=== PATIENT | male | born 1945 | race African-American/Black ===

== ENCOUNTER 2021-03-02 19:09 | Emergency (ER) | payer OTHER, SELFPAY ==
[2021-03-02 19:22] VITALS: BP 126/82; PULSE 87; RESP 20; TEMP 36.6; O2SAT 100; BMI 25.6
--- NOTE | 2021-03-02 21:50 | ED.GENADULT ---
HPI - General Adult General Chief complaint: Back Pain/Injury Stated complaint: leg pain Time Seen by Provider: 03/02/21 21:36 Source: patient and EMS Mode of arrival: EMS Limitations: no limitations History of Present Illness HPI narrative: Patient comes via EMS from [facility] since short-term rehab. Per EMS, patient was discharged from [facility] approximately 90 minutes ago, patient seems to have chronic back pain and goes to [facility] frequently. When patient was discharged from [facility], patient was taken back to the short-term rehab. Once he arrived, per EMS report, patient started complaining of his usual leg pain. Patient rested to be brought back to the hospital, this time [facility]. On arrival here, patient states that he was forced to come here, he did not want to come to the hospital, states that the short-term rehab forced him to come here because he was being loud. Patient states that he did not request to be brought back to the hospital. Patient states that he would like to be discharged home, he has no interest in short-term rehab. Patient states that he does not want any workup, all his pain is chronic, and did not want to come to hospital anyways. Related Data Allergies Allergy/AdvReac Type Severity Reaction Status Date / Time No Known Allergies Allergy Unverified 12/18/19 19:16 [No Known Allergies*] grass and pollen Allergy Unknown Uncoded 03/05/17 00:00 seasonal Allergy Unknown Uncoded 03/05/17 00:00 Review of Systems Review of Systems: Constitutional : No Weight loss, No Fever, No Chills, No Night Sweats, No Fatigue, No Malaise ENT/Mouth : No Hearing loss, No Ear Pain, No Nasal Congestion, No Sinus Pain, No Hoarseness, No sore throat, No Rhinorrhea, No Swallowing Difficulty Eyes: No Eye Pain, No Swelling, No Redness, No Foreign Body, No Discharge, No Vision Changes Cardiovascular : No Chest Pain, No SOB, No Dyspnea on Exertion, No Orthopnea, No Edema, No Palpitations Respiratory : No Cough, No Sputum, No Wheezing, No Smoke Exposure, No Dyspnea Gastrointestinal : No Nausea, No Vomiting, No Diarrhea, No Constipation, No abdominal Pain, No Hematochezia, No Melena Genitourinary : no irregular bleeding, No Dysuria, No Urinary Frequency, No Hematuria, No Urinary Incontinence, No Urgency, No Flank Pain, No Urinary Flow Changes, No Hesitancy Musculoskeletal : Chronic back pain and lower extremity pain, No Myalgias, No Joint Swelling Skin : No Skin Lesions, No rash Neuro : No Weakness, No Numbness, No Paresthesias, No Loss of Consciousness, No Dizziness, No Headache Psych : No Anxiety/Panic, No Depression, No SI/HI/AH/VH, No Social Issues, Heme/Lymph: No Bruising, No Bleeding,No Lymphadenopathy Endocrine : No Polyuria, No Polydipsia, No Temperature Intolerance [facility] Social History Social History Advance Directives: No Advance Directives Information Provided: Yes Physical Exam Vital Signs: Vital Signs: Last Vital Signs Temp 98 F 03/02/21 19:22 Pulse 87 03/02/21 19:22 Resp 20 03/02/21 19:22 BP 126/82 03/02/21 19:22 Pulse Ox 100 03/02/21 19:22 BMI result Body Mass Index 25.6 Const: Other: Appearance: Alert. Oriented X3. No acute distress. Calm, cooperative Eyes: Pupils equal, round and reactive to light. ENT: Pharynx normal. Neck: Normal inspection. Neck supple. No lymph nodes noted. No crepitus CVS: Normal heart rate and rhythm. Pulses normal. Normal S1 and S2 Respiratory: No respiratory distress. Breath sounds normal. No Wheezing. No rales Abdomen: Soft and nontender. No rigidity. No distention. good BS x4 Skin: Skin warm and dry. Normal skin color. Normal skin turgor. Extremities: No lower extremity edema. Neuro: Oriented X 3. No motor deficit. No sensory deficit. Moving all extermities. No slurred speech. Course Course Course Narrative: Patient declined any workup. Patient states that he would like to be discharged. States he was brought to the emergency room against his will. Case management was offered to the patient, declined any services An ambulation trial was attempted. Patient can barely stand up or walk. Patient needs to hold onto the bed, the cabinets and the wall because he cannot walk by himself. Patient is alert and oriented x4, states that he will refuse any services as mentioned above. Patient will be leaving against medical advice. I requested records from [facility]. Patient has history of prostate cancer with metastasis, likely the source of the pain. As mentioned above, patient declined any further workup refusing any services. Patient has been seen at [facility] 5 times this month, they tried offering service as well, patient left against medical advise from there too. Discharge Plan Discharge Clinical Impression: Chronic back pain Patient Disposition: Left Against Medical Advice Instructions: Chronic Back Pain (DC) Additional Instructions: Please follow-up with your primary care physician tomorrow. If you have any worsening or new symptoms, please return to the emergency room or call 911
--- NOTE | 2021-03-02 22:06 | PC.NURSE ---
Ambulation attempted via EDT, pt unable to ambulate w/o constant support from furniture or staff. MD Talley aware. Pt continues to request to leave, declines option of staying until AM for CM/PT. Pt alert and oriented, decisional, aware of risks of discharge.
--- NOTE | 2021-03-02 23:04 | PC.NURSE ---
Entered room to provide pt w/ dc instructions. Asked pt if he had transport home, pt stated me myself and I. Again offered option to stay until morning in this ED for PT and case management, pt continues to refuse. Asked can you get me an ambulance from here to [facility]? Attempted to educate pt that ambulances do not provide inter-hospital transport at patient request. Pt ambulated w/ slow and steady gait out of dept, did not accept dc papers or wc to lobby when offered
== END 2021-03-02 23:07 | disposition left against medical advice (07) ==
PROVIDERS: Emergency Provider Emergency Medicine
DX: M54.50 Low back pain, unspecified (principal); M79.605 Pain in left leg; M79.604 Pain in right leg
CPT/HCPCS: 99282

== ENCOUNTER 2021-03-03 01:04 | Emergency (ER) | payer OTHER, SELFPAY ==
--- NOTE | ~2021-03-03 | XR_ITS ---
EXAMINATION: XR hip LT w PEL1V, XR lumbar spine 2-3V CLINICAL INFORMATION: Reason for Exam pain, hx prostate CA w/ mets COMPARISON: None. TECHNIQUE: AP pelvis and 2 view series left hip; AP, lateral and coned lateral radiographs of the lumbar spine. FINDINGS: AP pelvis and left hip: Multiple Brachytherapy seeds are noted in the region of the prostate. Left hip demonstrates mild superior acetabular subchondral sclerosis. The visualized left femur is intact. Mild-moderate scattered atherosclerotic calcific atherosclerotic plaques are visualized. Visualized right hip demonstrates mild superior acetabular subchondral sclerosis and mild subchondral sclerosis of the superior right femoral head. Asymmetric focal sclerosis is noted within the left ileum over an approximately 2 cm CM region along the medial aspect of the inferior iliac body. Lumbar spine: 5 lumbar type vertebral bodies are identified. No vertebral body compression deformities visualized. Moderate marked intervertebral disc space narrowing and endplate discogenic sclerosis is present at L5-S1. Mild bilateral facet hypertrophic changes are present at L5-S1. Mild intervertebral disc space narrowing and vacuum phenomenon noted L4-L5. Multiple right upper quadrant calcifications are identified in a configuration suspicious for calcifications within the pancreas. Scattered bowel gas noted in nondistended small and large bowel segments. A 3 mm calculus is noted in projection with the right lower abdominal quadrant which qualitatively appears to reside lateral to the expected course of the right ureter may represent material within the fecal stream or dystrophic soft tissue calcification. XR/XR lumbar spine 2-3V IMPRESSION: Left hip and pelvis: -No acute abnormalities identified. -Mild bilateral hip osteoarthritis. -Brachytherapy seeds identified within the prostate. -Vague asymmetric sclerotic density within the inferior left iliac body which may represent metastatic disease. Lumbar spine: -No acute abnormalities identified. -Multilevel chronic spondylosis of the lumbar spine. -No vertebral body compression deformities or evidence of lumbar osseous metastatic disease. -Dystrophic calcifications within the pancreas may be secondary to chronic pancreatitis.
[2021-03-03 01:08] VITALS: BP 146/101; PULSE 102; RESP 32; TEMP 36.4; O2SAT 97; BMI 26.2
--- NOTE | 2021-03-03 01:23 | ED_ITS ---
HPI - General Adult General Chief complaint: Extremity Injury, Lower Stated complaint: readmit for leg pain Time Seen by Provider: 03/03/21 01:22 Source: patient Mode of arrival: ambulatory Limitations: no limitations History of Present Illness HPI narrative: Patient comes to the emergency room approximately 20 minutes after he left against medical advice. Patient states that he changed his mind and would like to be evaluated for physical therapy. Patient has no new complaints. Earlier today, patient was brought from a short-term rehab facility for chronic back pain, seen and evaluated at [facility] today. Patient left against medical advice from [facility] as well. At this time, patient refusing to answer any questions Related Data Allergies Allergy/AdvReac Type Severity Reaction Status Date / Time No Known Allergies Allergy Verified 03/03/21 01:07 [No Known Allergies*] grass and pollen Allergy Unknown Unknown Uncoded 03/03/21 01:07 seasonal Allergy Unknown Unknown Uncoded 03/03/21 01:07 Review of Systems Review of Systems: Patient refusing to answer any questions PMFSH Past Medical History Medical History (Updated 03/03/21 @ 02:03 by Serena Talley MD) Chronic low back pain Chronic post-traumatic stress disorder (PTSD) Diabetes Hypertension Prostate cancer Social History Social History Advance Directives: No Advance Directives Information Provided: Yes Physical Exam Vital Signs: Vital Signs: Last Vital Signs Temp 97.6 F 03/03/21 01:08 Pulse 102 H 03/03/21 01:08 Resp 32 H 03/03/21 01:08 BP 146/101 H 03/03/21 01:08 Pulse Ox 97 03/03/21 01:08 BMI result Body Mass Index 26.2 Const: Other: Appearance: Alert. No acute distress. Eyes: Pupils equal, round and reactive to light. ENT: Pharynx normal. Neck: Normal inspection. Neck supple. No lymph nodes noted. No crepitus CVS: Normal heart rate and rhythm. Pulses normal. Normal S1 and S2 Respiratory: No respiratory distress. Breath sounds normal. No Wheezing. No rales Abdomen: Soft and nontender. No rigidity. No distention. Skin: Skin warm and dry. Normal skin color. Normal skin turgor. Extremities: No lower extremity edema. Pain to palpation over the left side of the hip and lumbar spine Neuro: No motor deficit. No sensory deficit. Moving all extermities. No slurred speech. Course Course Course Narrative: Unfortunately, it is possible that patient's pain is likely secondary to sciatica versus malignancy secondary to prostate cancer metastases. At this time, cauda equina is not suspected. Patient is uncooperative, unwilling to answer questions We will start with x-rays of the hip and the lumbar spine. It is possible that he will need a CT scan. From records from [facility], seems that the patient has been told multiple times that he needs an MRI and seems the patient has not scheduled the MRI. Case management PT in the morning sign out given to Dr. Mcdonald Discharge Plan Discharge Clinical Impression: Chronic low back pain
[2021-03-03] MEDS: Acetaminophen 325 MG TABLET 650 MG PO (01:39)
[2021-03-03] MEDS: oxyCODONE HCl Immed Release 5 MG TABLET PO (02:31)
[2021-03-03 06:03] VITALS: BP 123/84; PULSE 78; RESP 14; O2SAT 98
[2021-03-03 07:25] VITALS: BP 123/84; PULSE 78; O2SAT 98
[2021-03-03 08:27] VITALS: BP 120/83; PULSE 82; RESP 18; TEMP 36.9; O2SAT 99
== END 2021-03-03 10:07 | disposition left against medical advice (07) ==
PROVIDERS: Emergency Provider Emergency Medicine
DX: G89.29 Other chronic pain (principal); M54.50 Low back pain, unspecified
CPT/HCPCS: 72100; 73502; 97162; 99284

== ENCOUNTER 2021-03-03 11:42 | Emergency (ER) | payer OTHER, MEDICARE, SELFPAY ==
[2021-03-03 11:46] VITALS: BP 112/92; PULSE 92; RESP 18; TEMP 36.2; O2SAT 99; BMI 26.2
[2021-03-03 12:06] VITALS: BP 112/92; PULSE 92; RESP 18; TEMP 36.2; O2SAT 99
--- NOTE | 2021-03-03 12:38 | ED_ITS ---
HPI - General Adult General Chief complaint: Extremity Injury, Lower Stated complaint: l leg pain Time Seen by Provider: 03/03/21 12:37 Source: patient Limitations: no limitations History of Present Illness HPI narrative: Patient returns to the ER for the 3rd time 72 hours complaining of back pain radiating down left leg. Patient states he had to leave after his last visit. States at 1 time they asked him to leave. Patient was not seen by social work lecturer of physical therapy at that time. Patient continues to have back pain and left leg pain. States he takes Eleanor aspirin back pain relief which gives him some relief. Patient states he is usually seen at [facility]. Symptoms are [id number]. Patient requesting have services at home. Related Data Allergies Allergy/AdvReac Type Severity Reaction Status Date / Time No Known Allergies Allergy Verified 03/03/21 01:07 [No Known Allergies*] grass and pollen Allergy Unknown Unknown Uncoded 03/03/21 01:07 seasonal Allergy Unknown Unknown Uncoded 03/03/21 01:07 Review of Systems Constitutional: Constitutional: Denies chills, Denies fever(s) and Denies headache(s) ENT: Denies headache(s) Cardiovascular: Cardiovascular: Denies chest pain and Denies dyspnea Respiratory: Respiratory: Denies dyspnea Gastrointestinal: Gastrointestinal: Denies nausea and Denies vomiting Comments: Patient denies loss of bowel movements urinary incontinence Musculoskeletal: Musculoskeletal: Reports back pain Neurologic: Denies headache(s) [facility] Past Medical History Attestation statement: The following information was validated with the patient. Medical History Chronic low back pain Chronic post-traumatic stress disorder (PTSD) Diabetes Hypertension Prostate cancer Social History Social History Advance Directives: No Advance Directives Information Provided: No Physical Exam Vital Signs: Vital Signs: Last Vital Signs Temp 97.1 F 03/03/21 12:06 Pulse 92 03/03/21 12:06 Resp 18 03/03/21 12:06 BP 112/92 H 03/03/21 12:06 Pulse Ox 99 03/03/21 12:06 BMI result Body Mass Index 26.2 vital signs have been reviewed as normal and appeared to be correct. Blood pressure normal. Heart rate normal. Respiration rate normal. Temperature normal. Oxygen saturation normal. Appearance: Alert. Oriented X3. No acute distress. Head: Normal external exam. Normocephalic. Atraumatic. No Zabala signs noted. No raccoon eyes noted Eyes: PERRLA. EOMI. Conjunctiva and sclera normal. Eyelids normal. ENT: Pharynx normal. Uvula midline. Moist mucous membranes. No trismus noted. Neck: Soft full range of motion, no JVD CVS: Heart regular rate and rhythm no murmurs and rubs Respiratory: Breath sounds are clear to auscultation bilaterally. No accessory muscle use noted. Abdomen: Soft nontender no rebound or guarding positive bowel sounds Back: Positive paraspinal muscle tenderness left greater than right. Negative straight leg raise on the left. Skin: Skin warm and dry. Normal skin color. Normal skin turgor. No rashes/lesions/lacerations noted. Extremities: Patient is ambulatory moving upper and lower extremities. Neuro: Oriented X 3. No motor deficit. No sensory deficit. No focal deficit noted. Course Course Course Narrative: Left leg sciatica Chronic back pain Disc disease Lumbar strain Muscle spasm 12:52 p.m. case management notified about the patient returning to the ER for the 3rd time in 72 hours will attempt to have physical therapy and/or social service evaluate patient for possible 0 patient emergency medicine physician assistant sent home. 13:55 Social service evaluation hoping for home [facility] will eat at this time 2:50 p.m. social work lecturer arranged for [facility] to see patient at home patient is tolerating p.o. well at this time healing launch. Plan to discharge no new medications at this time Recent x-rays below XR/XR lumbar spine 2-3V IMPRESSION: Left hip and pelvis: -No acute abnormalities identified. -Mild bilateral hip osteoarthritis. -Brachytherapy seeds identified within the prostate.? -Vague asymmetric sclerotic density within the inferior left iliac body which may represent metastatic disease. ? Lumbar spine: -No acute abnormalities identified. -Multilevel chronic spondylosis of the lumbar spine. -No vertebral body compression deformities or evidence of lumbar osseous metastatic disease. -Dystrophic calcifications within the pancreas may be secondary to chronic pancreatitis. Discharge Plan Discharge Clinical Impression: Chronic low back pain Qualifiers: Back pain laterality: left Sciatica presence: with sciatica Sciatica laterality: sciatica of left side Qualified Code(s): M54.42 - Lumbago with sciatica, left side Patient Disposition: Home, Self-Care Instructions: Chronic Back Pain (DC) Additional Instructions: Services will be set up through [facility] Continue current medication Return if symptoms worsen
--- NOTE | 2021-03-03 13:36 | MHC.CM.ED ---
Addendum entered by Zahraa Marcos 03/03/21 15:38: [facility] is able to accept patient. Addendum entered by Zahraa Marcos 03/03/21 15:25: [facility] is unable to accept patient at this time. Referral broadcasted in allscripts at this time. Per Sandra, RN, patient has a friend coming to transport him home. Original Note: Received case management consult from [facility]. Patient was recently at [facility] for back pain. Was sent to [facility] [address] for STR. Ended up transferring to [facility] ER and discharged home. Patient returned to ER due to back pain. Met with patient in regards to discharge planning. Patient is a retired [employer] . He has been at [facility] multiple times due to exacerbation of sciatica pain. He was discharged to [facility] on . When he arrived at [facility], there was no bed for him. Instead of taking patient back to [facility], EMS transported patient to [facility]. PCP verified. Patient states he hasn't eaten. Lunch provided. Patient agreeable to being discharged home with services at this time. Referral made to [facility]. Continue to monitor for d/c needs.
--- NOTE | 2021-03-03 15:31 | PC.NURSE ---
PT IS BEING SET UP WITH [facility] AT HOME. PT IS CALLING FOR A RIDE HOME.
== END 2021-03-03 15:46 | disposition home or self-care (01) ==
PROVIDERS: Emergency Provider Emergency Medicine; PCP Family Medicine
DX: M54.42 Lumbago with sciatica, left side (principal); E11.9 Type 2 diabetes mellitus without complications; I10 Essential (primary) hypertension
CPT/HCPCS: 99284